=== PATIENT | male | born 1955 | race Asian ===

== ENCOUNTER → 2023-08-05 10:09 | Outpatient (CLI) | payer MEDICARE, OTHER, SELFPAY ==
--- NOTE | 2023-08-05 | DI.US.S_ITS ---
PROCEDURE: US CAROTID DOPPLER BI INDICATIONS: CEREBROVASCULAR DISEASE TECHNIQUE: Color and pulse Doppler interrogation was performed of both carotid systems, with image documentation and velocity measurements. COMPARISON: [facility], [place], US CAROTID DOPPLER, 02/01/2022, 13:46. FINDINGS: Stenosis calculations are based on SRU (S[employer] in Ultras[employer]) criteria. Right side: Brachial blood pressure: 177/100 mm Hg. Common carotid artery peak systolic velocity: 82 cm/sec. Internal carotid artery peak systolic velocity: 82 cm/sec. Internal carotid artery end diastolic velocity: 23 cm/sec. External carotid artery peak systolic velocity: 242 cm/sec. ICA/CCA peak systolic ratio: 1.0 . Baez scale imaging description: Moderate plaque Percent internal carotid artery stenosis: Less than 50% stenosis, unchanged . Vertebral artery: Flow direction is antegrade. Left side: Brachial blood pressure: 160/94 mm Hg. Common carotid artery peak systolic velocity: 97 cm/sec. Internal carotid artery peak systolic velocity: 89 cm/sec. Internal carotid artery end diastolic velocity: 17 cm/sec. External carotid artery peak systolic velocity: 1.0 cm/sec. ICA/CCA peak systolic ratio: 0.9 . Baez scale imaging description: Moderate plaque Percent internal carotid artery stenosis: Less than 50% stenosis unchanged . Vertebral artery: Flow direction is antegrade. IMPRESSION: Unchanged appearance of less than 50% stenosis of the internal carotid arteries bilaterally. Increased velocity within the external carotid artery increased compared to prior exam suspicious for stenosis although not definitively identified. As clinically indicated, CTA may be obtained. Dictated by: Vero Arellano M.D. on 08/08/2023 at 17:30 Approved by: Vero Arellano M.D. on 08/08/2023 at 17:32
== END ==
PROVIDERS: PCP Family Medicine; Referring Provider Internal Medicine Cardiovascular Disease; Visit Provider Internal Medicine Cardiovascular Disease
DX: I67.9 Cerebrovascular disease, unspecified (principal); I25.10 Atherosclerotic heart disease of native coronary artery without angina pectoris; I65.23 Occlusion and stenosis of bilateral carotid arteries
CPT/HCPCS: 93880

== ENCOUNTER → 2023-10-31 08:42 | Outpatient (CLI) | payer MEDICARE, OTHER, SELFPAY ==
--- NOTE | 2023-10-31 | DI.US.S_ITS ---
PROCEDURE: US RENAL COMPLETE INDICATIONS: Acute kidney failure with tubular necrosis TECHNIQUE: Real-time scanning was performed of the kidneys and bladder, with image documentation. COMPARISON: None. FINDINGS: Kidneys: Kidneys are normal in size. Right kidney measures 10.6 cm long; left kidney measures 14.6 cm long. The cortex itself is not well seen. Renal cortical echotexture is normal. No hydronephrosis or nephrolithiasis. No suspicious solid mass lesions. Multiple simple cysts can be seen involving each kidney. No frankly suspicious features are seen. Bladder: Pre-void bladder volume is 353 mL. Post-void residual is 40 mL. Pre-void images demonstrate no intraluminal masses or stones. However, potential debris can be seen within the bladder on the prevoid images. This is not seen on postvoid images. On pre-void images, neither of the ureteral jets are noted with color Doppler interrogation. (Of note, ureteral jets may not be detectable in up to 25% of cases due to insufficient differences in specific gravity between ureteral and bladder urine). Miscellaneous: No free pelvic fluid. IMPRESSION: Multiple simple cysts can be seen involving each kidney, with an appearance consistent with polycystic kidney disease. Please correlate with known patient history. Moderate postvoid residual, 40 cc. Potential debris can be seen within the bladder on the prevoid images. Dictated by: Miky Leblanc M.D. on 10/31/2023 at 11:40 Approved by: Miky Leblanc M.D. on 10/31/2023 at 11:42
== END ==
PROVIDERS: PCP Internal Medicine; Referring Provider Specialist; Visit Provider Specialist
DX: N17.0 Acute kidney failure with tubular necrosis (principal); Q61.3 Polycystic kidney, unspecified; N13.39 Other hydronephrosis
CPT/HCPCS: 76770